=== PATIENT | female | born 1950 | race Caucasian/White ===

== ENCOUNTER 2021-01-04 21:56 | Emergency (ER) | payer OTHER ==
[~2021-01-04] VITALS: Ht 154.9 cm; Wt 70.8 kg
[~2021-01-04 21:56] MED LIST: CYMBALTA30 MG; OMEPRAZOLE20 MG; TOPAMAX50 MG
[2021-01-05] MEDS ORDERED: MIRALAX510 GM PO (02:59)
== END 2021-01-05 03:02 ==
LOC: ER 21:56
DX: K59.09 Other constipation (principal); M54.5 Low back pain

== ENCOUNTER 2023-02-17 09:59 | Outpatient (CLI) | payer OTHER ==
[~2023-02-17 09:59] MED LIST changes: +MIRALAX510 GM PO
== END 2023-02-17 10:01 | disposition home or self-care (01) ==
LOC: LAB 09:59
PROVIDERS: ATTEND Orthopaedic Surgery
DX: D64.89 Other specified anemias (principal); E88.89 Other specified metabolic disorders; D68.8 Other specified coagulation defects; N39.0 Urinary tract infection, site not specified; A49.02 Methicillin resistant Staphylococcus aureus infection, unspecified site; E11.9 Type 2 diabetes mellitus without complications; I49.9 Cardiac arrhythmia, unspecified; I10 Essential (primary) hypertension; Z76.89 Persons encountering health services in other specified circumstances

== ENCOUNTER 2023-02-27 12:15 | Inpatient (IN) | payer OTHER ==
[~2023-02-27] VITALS: Ht 152.4 cm; Wt 72.6 kg
[2023-02-27] MEDS ORDERED: LYRICA300 MG PO (16:10)
[2023-02-27] MEDS ORDERED: ELIQUIS2.5 MG PO (16:11)
[2023-02-27] MEDS ORDERED: ZIAC 2.5-6.251 EACH PO (16:12)
[2023-03-04] MEDS ORDERED: GABAPENTIN100 M2 (13:07)
[2023-03-04] MEDS ORDERED: OMEPRAZOLE20 M1 (13:07)
[2023-03-04] MEDS ORDERED: ELIQUIS5 MG (13:08)
[2023-03-04] MEDS ORDERED: FLECAINIDE ACET50 MG (13:08)
[2023-03-04] MEDS ORDERED: BISOPROLOL FUMAR5 MG (13:08)
[2023-03-04] MEDS ORDERED: ALENDRONATE SOD70 MG (13:08)
[2023-03-04] MEDS ORDERED: MONTELUKAST SOD10 MG (13:08)
== END 2023-03-08 16:28 | disposition home or self-care (01) | DRG 470 ==
LOC: SURH 03-04 07:00 → O/R 03-04 11:25 → SURH 03-04 11:25
PROVIDERS: ADMIT Orthopaedic Surgery; ATTEND Orthopaedic Surgery
PROC: 0SRD0J9 Replacement of Left Knee Joint with Synthetic Substitute, Cemented, Open Approach (ICD-10-PCS; principal; 2023-03-04 07:00)
PROC: 30233N1 Transfusion of Nonautologous Red Blood Cells into Peripheral Vein, Percutaneous Approach (ICD-10-PCS; 2023-03-06)
PROC: 4A12X4Z Monitoring of Cardiac Electrical Activity, External Approach (ICD-10-PCS; 2023-03-06)
DX: M17.12 Unilateral primary osteoarthritis, left knee (principal); D62 Acute posthemorrhagic anemia; I48.20 Chronic atrial fibrillation, unspecified; I11.9 Hypertensive heart disease without heart failure; Z79.01 Long term (current) use of anticoagulants; K21.9 Gastro-esophageal reflux disease without esophagitis

== ENCOUNTER 2023-03-20 10:38 | Outpatient (CLI) | payer OTHER ==
[~2023-03-20 10:38] MED LIST changes: +ALENDRONATE SOD70 MG; +BISOPROLOL FUMAR5 MG; +ELIQUIS2.5 MG PO; +ELIQUIS5 MG; +FLECAINIDE ACET50 MG; +GABAPENTIN100 M2; +LYRICA300 MG PO; +MONTELUKAST SOD10 MG; +OMEPRAZOLE20 M1; +ZIAC 2.5-6.251 EACH PO
== END 2023-03-20 10:42 | disposition home or self-care (01) ==
LOC: NUCLEAR 10:38
PROVIDERS: ATTEND Orthopaedic Surgery
DX: I87.2 Venous insufficiency (chronic) (peripheral) (principal); Z96.652 Presence of left artificial knee joint

== ENCOUNTER 2023-12-22 16:11 | Outpatient (CLI) | payer OTHER ==
[2023-12-22 18:30] LABS: SYNOVIAL FLUID APPEARANCE HAZY; SYNOVIAL FLUID COLOR YELLOW
[2023-12-22 18:31] LABS: MONONUCLEAR 12 %; POLYMORPHONUCLEAR 88 %
== END 2023-12-22 16:20 | disposition home or self-care (01) ==
LOC: LAB 16:11
PROVIDERS: ATTEND Orthopaedic Surgery
DX: M25.462 Effusion, left knee (principal)

== ENCOUNTER 2024-01-09 14:42 | Emergency (ER) | payer OTHER ==
[~2024-01-09] VITALS: Ht 152.4 cm; Wt 72.6 kg
[2024-01-09] MEDS ORDERED: FAMOTIDINE/PF 20 MG in 0.9 % SODIUM CHLORIDE 8 ML IV PUSH STA (16:32)
[2024-01-09] MEDS ORDERED: ONDANSETRON HCL 2 MG/ML VIAL IV ONE (16:45)
[2024-01-09] MEDS ORDERED: 0.9 % SODIUM CHLORIDE 1,000 ML IV SCH (16:45)
[2024-01-09 17:04] LABS: HEMATOCRIT 43.1 % (36.0-45.00); HEMOGLOBIN 14.5 g/dL (12.0-15.00); MEAN CELL VOLUME 87.3 fL (80.00-100.00); MEAN CORPUSCULAR HEMOGLOBIN 29.4 pg (27.00-32.0); MEAN CORPUSCULAR HGB CONC 33.6 g/dl (32.0-36.0); PLATELET COUNT 180 K/uL (150-450); RED BLOOD COUNT 4.94 M/uL (4.00-6.00); RED CELL DISTRIBUTION WIDTH 14.2 % (11.5-14.5)
[2024-01-09 17:29] LABS: ALBUMIN 3.7 gm/dL (3.4-5.0); BILIRUBIN TOTAL 0.86 mg/dL (0.3-1.2); BILIRUBIN,CONJUGATED 0.19 mg/dL (0.0-0.2); BILIRUBIN,UNCONJUGATED 0.67 mg/dL (0.0-0.6); CALCIUM 10.1 mg/dL (8.5-10.1); CREATININE SERUM 0.86 mg/dL (0.55-1.02); GFR 64.5; GLOBULINA 3.9 G/DL (2.4-3.5); POTASSIUM 3.95 mEq/L (3.5-5.1); TOTAL PROTEIN 7.6 gm/dL (6.4-8.2)
== END 2024-01-09 18:10 | disposition home or self-care (01) ==
LOC: ER 14:43
PROVIDERS: General Practice
DX: T65.891A Toxic effect of other specified substances, accidental (unintentional), initial encounter (principal); Y92.018 Other place in single-family (private) house as the place of occurrence of the external cause; I10 Essential (primary) hypertension; Z88.6 Allergy status to analgesic agent; Z88.8 Allergy status to other drugs, medicaments and biological substances
CPT/HCPCS: 36415; 93005; 96365; 99283; J2405; J3490

== ENCOUNTER → 2024-02-12 12:17 | Outpatient (CLI) | payer OTHER | END | disposition home or self-care (01) | LOC: NUCLEAR 12:17 | PROVIDERS: ATTEND Internal Medicine | DX: E85.9 Amyloidosis, unspecified (principal) | CPT/HCPCS: 78472; A9538 ==

== ENCOUNTER 2024-02-16 07:27 | Outpatient (CLI) | payer OTHER | END 2024-02-16 07:28 | disposition home or self-care (01) | LOC: NUCLEAR 07:27 | PROVIDERS: ATTEND Internal Medicine | DX: I20.9 Angina pectoris, unspecified (principal) | CPT/HCPCS: 78452; 93017; A9500; J0153 ==

== ENCOUNTER 2024-07-15 07:59 | Outpatient (CLI) | payer OTHER | END 2024-07-15 08:03 | disposition home or self-care (01) | LOC: NUCLEAR 07:59 | PROVIDERS: ATTEND Internal Medicine | DX: I50.30 Unspecified diastolic (congestive) heart failure (principal) ==

== ENCOUNTER 2025-07-10 16:53 | Emergency (ER) | payer OTHER ==
[~2025-07-10] VITALS: Ht 152.4 cm; Wt 65.8 kg
[2025-07-10 18:24] LABS: BASO % 0.5 % (0.1-1.2); EOS # 0.06 (0.04-0.54); EOS % 1.0 % (0.7-7.0); LYMPH # 1.97 (1.18-3.74); LYMPH % 32.9 % (19.3-53.1); MEAN PLATELET VOLUME 9.80 fl (9.4-12.4); MONO # 0.69 (0.24-0.82); MONO % 11.5 % (4.7-12.5); NEUT # 3.22 (1.56-6.13); NEUT % 53.8 % (34.0-71.1); RED CELL DISTRIBUTION WIDTH 15.4 % (11.6-14.4)
[2025-07-10 18:56] LABS: ALT/SGPT 98.0 U/L (12-78); AST/SGOT 30.0 U/L (15-37); BILIRUBIN TOTAL 0.63 mg/dL (0.3-1.2); BUN CREA RATIO 16.0 (7.0-25.0); CREATININE SERUM 0.9 mg/dL (0.55-1.02); GFR 61.04; GLOBULINA 3.3 G/DL (2.4-3.5); GLUCOSE FASTING 91.0 mg/dL (65-100); LDH 277.0 U/L (84-246); OSMOLALITY SERUM 291.0 MOSM/KG (275-295); PHOSPHOKINASE CREATININE 85.0 U/L (26-192)
== END 2025-07-10 20:30 | disposition home or self-care (01) ==
LOC: ER 18:42
PROVIDERS: Emergency Medicine
DX: R06.02 Shortness of breath (principal); I10 Essential (primary) hypertension; Z88.6 Allergy status to analgesic agent

== ENCOUNTER 2025-08-21 13:58 | Emergency (ER) | payer OTHER ==
[~2025-08-21] VITALS: Ht 152.4 cm; Wt 62.6 kg
[2025-08-21] MEDS ORDERED: TRAMADOL HCL 50 MG TABLET PO STA ×2 (15:27→15:34)
[2025-08-21] MEDS ORDERED: TRAMADOL HCL50 MG PO (19:46)
== END 2025-08-21 20:16 | disposition home or self-care (01) ==
LOC: ER 13:59
DX: S92.355A Nondisplaced fracture of fifth metatarsal bone, left foot, initial encounter for closed fracture (principal); W19.XXXA Unspecified fall, initial encounter; Y93.89 Activity, other specified; Y92.89 Other specified places as the place of occurrence of the external cause; Y99.9 Unspecified external cause status; Z88.6 Allergy status to analgesic agent; Z88.8 Allergy status to other drugs, medicaments and biological substances